=== PATIENT | male | born 1950 | race Caucasian/White ===

== ENCOUNTER → 2021-12-18 | Outpatient (CLI) | payer OTHER ==
--- NOTE | 2021-12-18 14:41 | KCIC ---
EXAM: XR EYE_DETECT FOREIGN BODY 12/18/2021 10:30 AM CLINICAL INDICATION: Screening prior to MRI. Evaluate for implant. History of retinal detachment wit h intervention, right eye. COMPARISON: None TECHNIQUE: 2 views of the orbits FINDINGS: There is no radiopaque foreign body in the orbits. IMPRESSION: No radiopaque foreign body in the orbits. Electronically signed by: Jovana Collier MD (12/18/2021 2:39 PM) [id number]
--- NOTE | 2021-12-18 15:13 | KCIC ---
MRI of the lumbar spine without contrast 12/18/2021 CLINICAL HISTORY: Worsening lower extremity numbness. History of previous lumbar spine surgery. TECHNIQUE: Unenhanced T1-weighted and T2-weighted sagittal and axial and inversion recovery sagittal images of the lumbar spine were obtained. FINDINGS: Minimal S-shaped curvature of the thoracolumbar spine is seen. The patient is post anterior fusion at L5-S1 using what appear to be screws and bone graft material. Mild retrolisthesis of L3 in relation L4 is noted. Degenerative signal changes are seen involving all of the disks of the lumbar spine. Degenerative signal changes are seen within the marrow surrounding these discs. Loss of height of the L2-3 and L3-4 discs is noted. The conus medullaris is normal in morphology, position, and sig nal characteristics. Rounded high signal intensity lesions are seen involving both kidneys, right gre ater than left on the T2-weighted images. These measure 2.3 to 6.9 cm in size. They likely represent cysts. No further imaging evaluation is recommended. At the L1-2 disc space there is a mild generalized disc bulge. Degenerative changes are seen involvin g the facet joints bilaterally. There are small facet joint effusions bilaterally. There is mild to m oderate ligamentum flavum hypertrophy bilaterally. There is prominence of the posterior epidural fat. These findings when combined do not result in significant central spinal canal or neural foraminal s tenosis. At the L2-3 disc space there is a mild to moderate generalized disc bulge. This is eccentric to the r ight. Degenerative changes are seen involving the facet joints bilaterally. There are small facet mendez nt effusions bilaterally. There is mild to moderate ligamentum flavum hypertrophy bilaterally. There is prominence of posterior epidural fat. These findings when combined result in mild to moderate righ t greater than left central spinal canal stenosis. No neural foraminal stenosis is seen. At the L3-4 disc space there is a mild to moderate generalized disc bulge. Degenerative changes are s een involving the facet joints bilaterally. There is mild ligamentum flavum hypertrophy bilaterally. There are small facet joint effusions bilaterally. There is prominence of posterior epidural fat. The se findings when combined result in mild central spinal canal stenosis. No neural foraminal stenosis is seen. At the L4-5 disc space there is a mild generalized disc bulge. Degenerative changes are seen involvin g the facet joints bilaterally. There is moderate ligamentum flavum hypertrophy bilaterally. There ar e small facet joint effusions bilaterally. These findings when combined with prominence of posterior epidural fat result in mild to moderate central spinal canal stenosis. No neural foraminal stenosis i s seen. At the L5-S1 level degenerative changes are seen involving the facet joints bilaterally. There is mil d ligamentum flavum hypertrophy bilaterally. These findings when combined do not result in significan t central spinal canal or neural foraminal stenosis. IMPRESSION: 1. Post anterior fusion at L5-S1. 2. The changes of degenerative disc disease are seen throughout the lumbar spine. These findings resu lt in mild to moderate right greater than left central spinal canal stenosis at L2-3, mild central sp inal canal stenosis at L3-4 and mild to moderate central spinal canal stenosis at L4-5. No neural for aminal stenosis is seen. Electronically signed by: Nikita Daniels MD (12/18/2021 3:11 PM) [id number]
== END ==
LOC: KCIC MRI 10:06
PROVIDERS: ATTEND Family Medicine
DX: M51.36 Other intervertebral disc degeneration, lumbar region (principal); M47.817 Spondylosis without myelopathy or radiculopathy, lumbosacral region; M51.26 Other intervertebral disc displacement, lumbar region; M48.061 Spinal stenosis, lumbar region without neurogenic claudication; G03.8 Meningitis due to other specified causes; M43.16 Spondylolisthesis, lumbar region; N28.89 Other specified disorders of kidney and ureter; M43.8X5 Other specified deforming dorsopathies, thoracolumbar region; Z98.1 Arthrodesis status
CPT/HCPCS: 70030; 72148